=== PATIENT | male | born 1955 | race Caucasian/White ===

== ENCOUNTER 2018-12-16 18:24 | Emergency (ER) | payer MEDICARE, OTHER ==
--- NOTE | 2018-12-16 21:00 | EDM.PDOC ---
ED HPI GENERAL MEDICAL PROBLEM - General Chief Complaint: Genitourinary Problem Stated Complaint: MEDICAL Time Seen by Provider: 12/16/18 20:28 Source of Information: Reports: Patient, Family () History Limitations: Reports: No Limitations - History of Present Illness INITIAL COMMENTS - FREE TEXT/NARRATIVE: Chief complaint: "we are worried about bruising on his belly and brief nose bleed. He is on Lovenox" This is a 63 year old male present to ER with his , She give most of the report, She states last Tuesday, Agustin has a Prostatectomy in [place]. Was discharged home with indwelling graham cath and daily Lovenox shots. Today she notice a large bruise on his right side and a brief nose bleed. He was advised to take Lovenox daily for 30 days. He does not have any cardiac history, Afib, PE or DVT. denies any fever, chills, nausea, vomiting, back pain, headache, shortness of breath, chest pain. Has taken one pain pill since surgery. reports pain is minimal. Follow up appointment with FARSHAD Saravia on 12/19/2018 and Surgeon 12/21/2018. He was to start Septra on Tuesday, the day before his cath. is removed. Onset: Today (notice a bruise to right side and brief nose bleed, lasting a few seconds.) Improves with: Reports: None Worsens with: Reports: None Associated Symptoms: Reports: No Other Symptoms - Related Data Allergies Allergy/AdvReac Type Severity Reaction Status Date / Time ciprofloxacin [From Cipro] Allergy Muscle Verified 12/16/18 20:03 Weakness Home Meds: Home Meds Enoxaparin Sodium [Lovenox] 12/16/18 [History] oxyCODONE 12/16/18 [History] Past Medical History - Past Surgical History GI Surgical History: Reports: Hernia, Inguinal Social & Family History - Tobacco Use Smoking Status *Q: Never Smoker ED ROS GENERAL - Review of Systems Review Of Systems: See Below Constitutional: Reports: Decreased Appetite HEENT: Reports: Nosebleed (once lasting a few seconds) Respiratory: Reports: No Symptoms Cardiovascular: Reports: No Symptoms Endocrine: Reports: No Symptoms GI/Abdominal: Reports: No Symptoms : Reports: No Symptoms Musculoskeletal: Reports: No Symptoms Skin: Reports: Other (fine rash on abdomen since surgery. multi surgery incisions noted across abdomen.) Neurological: Reports: No Symptoms Psychiatric: Reports: No Symptoms Hematologic/Lymphatic: Reports: Easy Bleeding, Easy Bruising Immunologic: Reports: No Symptoms ED EXAM, GI/ABD - Physical Exam Exam: See Below Exam Limited By: No Limitations General Appearance: Alert, WD/WN, No Apparent Distress (quiet. reserved.), Thin Eyes: Bilateral: Normal Appearance Neck: Normal Inspection, Supple, Non-Tender, Full Range of Motion Respiratory/Chest: No Respiratory Distress, Lungs Clear, Normal Breath Sounds, No Accessory Muscle Use, Chest Non-Tender Cardiovascular: Regular Rate, Rhythm, No Murmur GI/Abdominal Exam: Soft, Other (multi surgerical incisions. dry, clean. intact. without erythema) (Male) Exam: Other (indwelling cath. inplace) Rectal (Males) Exam: Deferred Back Exam: Normal Inspection, Full Range of Motion Extremities: Normal Inspection, Normal Range of Motion, Normal Capillary Refill Neurological: Alert, Oriented, CN II-XII Intact, Normal Cognition, Normal Gait, Normal Reflexes, No Motor/Sensory Deficits Psychiatric: Normal Affect, Normal Mood Skin Exam: Warm, Dry, Ecchymosis (noted from right abdomen extending into back. no pain with palpation of site. ) Lymphatic: No Adenopathy Course - Vital Signs Last Recorded V/S: Last Vital Signs Temp 35.6 C 12/16/18 20:11 Pulse 88 12/16/18 20:11 Resp 14 12/16/18 20:11 BP 130/79 12/16/18 20:11 Pulse Ox 98 12/16/18 20:11 - Orders/Labs/Meds Orders: Active Orders 24 hr Category Date Time Status CULTURE URINE [RM] Urgent Lab 12/16/18 19:30 Received Labs: Laboratory Tests 12/16/18 12/16/18 12/16/18 Range/Units 18:27 20:42 20:42 WBC 5.9 (4.5-11.0) K/uL RBC 3.87 L (4.30-5.90) M/uL Hgb 11.2 L (12.0-15.0) g/dL Hct 34.2 L (40.0-54.0) % MCV 88 (80-98) fL MCH 29 (27-31) pg MCHC 33 (32-36) % Plt Count 261 (150-400) K/uL Neut % (Auto) 52 (36-66) % Lymph % (Auto) 28 (24-44) % [place] % (Auto) 14 H (2-6) % Eos % (Auto) 5 H (2-4) % Baso % (Auto) 1 (0-1) % PT 9.7 (9.5-12.0) sec INR 0.88 (0.80-1.20) Sodium (140-148) mmol/L Potassium (3.6-5.2) mmol/L Chloride (100-108) mmol/L Carbon Dioxide (21-32) mmol/L Anion Gap (5.0-14.0) mmol/L BUN (7-18) mg/dL Creatinine (0.8-1.3) mg/dL Est Cr Clr Drug Dosing mL/min Estimated GFR (MDRD) (>60) Glucose (74-106) mg/dL Calcium (8.5-10.1) mg/dL Urine Color Brown Urine Appearance Cloudy Urine pH 6.0 (4.5-8.0) Ur Specific [place] 1.020 (1.008-1.030) Urine Protein Trace (NEGATIVE) mg/dL Urine Glucose (UA) Normal (NEGATIVE) mg/dL Urine Ketones Negative (NEGATIVE) mg/dL Urine Occult Blood Large (NEGATIVE) Urine Nitrite Negative (NEGAITVE) Urine Bilirubin Negative (NEGATIVE) Urine Urobilinogen Normal (NORMAL) mg/dL Ur Leukocyte Esterase Small (NEGATIVE) Urine RBC Packed H (0-5) Urine WBC 10-20 H (0-5) Ur Epithelial Cells Few Amorphous Sediment Not seen Urine Bacteria Moderate Urine Mucus Moderate Urine Other 12/16/18 Range/Units 20:42 WBC (4.5-11.0) K/uL RBC (4.30-5.90) M/uL Hgb (12.0-15.0) g/dL Hct (40.0-54.0) % MCV (80-98) fL MCH (27-31) pg MCHC (32-36) % Plt Count (150-400) K/uL Neut % (Auto) (36-66) % Lymph % (Auto) (24-44) % [place] % (Auto) (2-6) % Eos % (Auto) (2-4) % Baso % (Auto) (0-1) % PT (9.5-12.0) sec INR (0.80-1.20) Sodium 136 L (140-148) mmol/L Potassium 3.5 L (3.6-5.2) mmol/L Chloride 101 (100-108) mmol/L Carbon Dioxide 29 (21-32) mmol/L Anion Gap 9.5 (5.0-14.0) mmol/L BUN 15 (7-18) mg/dL Creatinine 0.9 (0.8-1.3) mg/dL Est Cr Clr Drug Dosing 87.15 mL/min Estimated GFR (MDRD) > 60 (>60) Glucose 109 H (74-106) mg/dL Calcium 9.0 (8.5-10.1) mg/dL Urine Color Urine Appearance Urine pH (4.5-8.0) Ur Specific [place] (1.008-1.030) Urine Protein (NEGATIVE) mg/dL Urine Glucose (UA) (NEGATIVE) mg/dL Urine Ketones (NEGATIVE) mg/dL Urine Occult Blood (NEGATIVE) Urine Nitrite (NEGAITVE) Urine Bilirubin (NEGATIVE) Urine Urobilinogen (NORMAL) mg/dL Ur Leukocyte Esterase (NEGATIVE) Urine RBC (0-5) Urine WBC (0-5) Ur Epithelial Cells Amorphous Sediment Urine Bacteria Urine Mucus Urine Other - Re-Assessments/Exams Free Text/Narrative Re-Assessment/Exam: 12/16/18 21:06 discussed with and Mrs. Jacobs, will do labs, CBC, BMP, INR,PT Urine +WBC, +bacteria, +mucous, +leukocytes, packed RBC: will start Septra tonight. 12/16/18 21:23 labs:CBC WBC 5.9, hgb 11.2, hct 34.2, plt 261, INR 0.88, PT 9.7 12/16/18 21:33 chemistry: no acute changes Departure - Departure Time of Disposition: 21:31 Disposition: Home, Self-Care 01 Condition: Good Clinical Impression: UTI, Urinary tract infectious disease Superficial bruising of abdominal wall Qualifiers: Encounter type: initial encounter Qualified Code(s): S30.1XXA - Contusion of abdominal wall, initial encounter - Discharge Information *PRESCRIPTION DRUG MONITORING PROGRAM REVIEWED*: No *COPY OF PRESCRIPTION DRUG MONITORING REPORT IN PATIENT CHRISS: No Instructions: Indwelling Urinary Catheter Care, Adult, Contusion, [id number] , Urinary Tract Infection, Adult Referrals: Ashutosh Gee MEDICAL RECORD LIBRARIAN [Primary Care Provider] - Forms: ED Department Discharge Care Plan Goals: Urinary Tract Infection -start Septra DS one by mouth two times a day til gone -graham cath care per Discharge Plans -return to ER for any fever, chills, nausea, vomiting or any concerns. Bruising -Hold Lovenox till Tuesday -call Primary Care or Urology for further direction. -return to ER for any concerns. - Problem List & Annotations (1) UTI, Urinary tract infectious disease SNOMED Code(s): 72596124 Code(s): N39.0 - URINARY TRACT INFECTION, SITE NOT SPECIFIED Status: Acute Priority: High Current Visit: Yes (2) Superficial bruising of abdominal wall SNOMED Code(s): 43657883 Code(s): S30.1XXA - CONTUSION OF ABDOMINAL WALL, INITIAL ENCOUNTER Status: Acute Priority: Medium Current Visit: Yes Qualifiers: Encounter type: initial encounter Qualified Code(s): S30.1XXA - Contusion of abdominal wall, initial encounter - Problem List Review Problem List Initiated/Reviewed/Updated: Yes - Assessment/Plan Plan: Urinary Tract Infection -start Septra DS one by mouth two times a day til gone -graham cath care per Discharge Plans -return to ER for any fever, chills, nausea, vomiting or any concerns. Bruising -Hold Lovenox till Tuesday -call Primary Care or Urology for further direction. -return to ER for any concerns.
== END 2018-12-16 21:35 | disposition home or self-care (01) ==
LOC: JP.ED 18:24
DX: S30.1XXA Contusion of abdominal wall, initial encounter (principal); N39.0 Urinary tract infection, site not specified; X58.XXXA Exposure to other specified factors, initial encounter; Z88.1 Allergy status to other antibiotic agents
CPT/HCPCS: 36415; 80048; 81001; 85025; 85610; 87086; 99283